=== PATIENT | female | born 1975 | race Caucasian/White ===

== ENCOUNTER 2019-02-26 19:52 | Emergency (ER) | payer BC ==
[~2019-02-26] VITALS: Ht 172.7 cm; Wt 60.0 kg
[2019-02-26] MEDS ORDERED: HYDROcodone/acetaminophen 5mg/325mg tablet PO ONE (21:10)
[2019-02-26] MEDS ORDERED: HYDR-3965 PO (23:11)
[2019-02-26 23:17] VITALS: BP 91/56
== END 2019-02-26 23:30 | disposition home or self-care (01) ==
LOC: ER 19:52
DX: I82.401 Acute embolism and thrombosis of unspecified deep veins of right lower extremity (principal); Z98.890 Other specified postprocedural states; Z79.899 Other long term (current) drug therapy
CPT/HCPCS: 93971; 99284

== ENCOUNTER 2020-05-09 07:40 | Outpatient (CLI) | payer BC ==
[2020-05-09] VITALS (22 sets, daily range): BP systolic 94–133; BP diastolic 60–89
== END 2020-05-09 23:59 | disposition home or self-care (01) ==
LOC: CARD DIAG 07:40
PROVIDERS: ATTEND Internal Medicine Cardiovascular Disease
DX: R55 Syncope and collapse (principal)
CPT/HCPCS: 93660